=== PATIENT | female | born 1980 ===

== ENCOUNTER 2017-02-16 11:36 | Emergency (ER) | payer OTHER ==
[2017-02-16 11:48] VITALS: BP 130/85; PULSE 70; RESP 20; TEMP 98.3; O2SAT 100
--- NOTE | 2017-02-16 13:06 | C.PDOC ---
History Of Present Illness 36 y/o female presents to ED with complaints of a small thin needle sticking her hand. 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 Pt found a small plastic object with thin short bent 1 cm needle protruding from plastic. Patient is unclear if object is contaminated and reports washing hands right after incident. Patient denies numbness, fever and is unsure of last tetanus shot. Time Seen by Provider: 02/16/17 11:51 Chief Complaint (Nursing): Needle Stick History Per: Patient History/Exam Limitations: no limitations Onset/Duration Of Symptoms: Hrs Current Symptoms Are (Timing): Still Present Past Medical History Reviewed: Historical Data, Nursing Documentation, Vital Signs Vital Signs: Last Vital Signs Temp 98.3 F 02/16/17 11:44 Pulse 70 02/16/17 11:44 Resp 20 02/16/17 11:44 BP 130/85 02/16/17 11:44 Pulse Ox 100 02/16/17 14:47 Family History: States: Unknown Family Hx - Social History Hx Alcohol Use: No Hx Substance Use: No Review Of Systems Constitutional: Negative for: Fever, Chills Musculoskeletal: Positive for: Hand Pain Skin: Negative for: Rash Neurological: Negative for: Weakness, Numbness Physical Exam - Physical Exam Appears: Non-toxic, No Acute Distress Skin: Normal Color, Warm, Other (no puncture isabela noted on right palm) Head: Atraumatic, Normacephalic Oral Mucosa: Moist Extremity: Normal ROM, Capillary Refill (<2 seconds), No Deformity Pulses: Left Radial: Normal, Right Radial: Normal Neurological/Psych: Oriented x3, Normal Speech, Normal Cognition ED Course And Treatment - Laboratory Results Result Diagrams: 02/16/17 13:52 02/16/17 13:52 Urine POC: Negative O2 Sat by Pulse Oximetry: 100 (RA) Pulse Ox Interpretation: Normal Medical Decision Making Medical Decision Making: discussed with Dr Lisandra Weinberg, Infectious disease. Given unclear if contaminated needle or not, will recommend PEP with outpatient follow up with her in [facility]. Disposition Discussed With : Rafael Weinberg Doctor Will See Patient In The: Office Counseled Patient/Family Regarding: Studies Performed, Diagnosis, Need For Followup, Rx Given - Disposition Referrals: Rafael Weinberg MD [Staff Provider] - Disposition: HOME/ ROUTINE Disposition Time: 14:20 Condition: STABLE Additional Instructions: Take medications as prescribed. Follow up with Dr Weinberg on next week; call office today for an appointment. Prescriptions: Dolutegravir Sodium [Tivicay] 50 mg PO DAILY #3 tab Emtricitabine/Tenofovir (Tdf) [Truvada 200 mg-300 mg Tablet] 1 each PO DAILY #3 tablet Instructions: Needle Stick Injuries (ED) Forms: Gen Discharge Inst Albanian, General Discharge Instructions, Work Excuse Print Language: PASHTO - Clinical Impression Clinical Impression: Needle stick injury - Scribe Statement The provider has reviewed the documentation as recorded by the Scribe Alissa Goddard All medical record entries made by the Scribe were at my direction and personally dictated by me. I have reviewed the chart and agree that the record accurately reflects my personal performance of the history, physical exam, medical decision making, and the department course for this patient. I have also personally directed, reviewed, and agree with the discharge instructions and disposition.
[2017-02-16] MEDS ORDERED: Emtricitabine-Tenofovir 200 mg-300 mg Tab PO STA ×3 (13:25→13:31)
[2017-02-16 14:01] LABS: BASO # 0.1 K/uL (0.0-0.2); BASO % 0.8 % (0.0-2.0); EOS % 0.4 % (0.0-4.0); HEMOGLOBIN 12.9 g/dL (11.0-16.0); LYMPH # 2.3 K/uL (1.0-4.3); LYMPH % 28.4 % (20.0-40.0); MEAN CELL VOLUME 90.5 fL (81.0-99.0); MEAN CORPUSCULAR HEMOGLOBIN 29.5 pg (27.0-31.0); MEAN CORPUSCULAR HGB CONC 32.6 g/dL (33.0-37.0); MEAN PLATELET VOLUME 9.2 fL (7.2-11.7); MONO # 0.5 K/uL (0.0-0.8); MONO % 5.7 % (0.0-10.0); NEUT # 5.2 K/uL (1.8-7.0); NEUT % 64.7 % (50.0-75.0); RBC 4.37 Mil/uL (3.80-5.20); RED CELL DISTRIBUTION WIDTH 12.8 % (11.5-14.5)
[2017-02-16 14:02] LABS: SQUAMOUS EPITHIAL 2 /hpf (0-5); URINE BACTERIA RARE (<OCC); URINE BILIRUBIN NEGATIVE (NEGATIVE); URINE BLOOD NEGATIVE (NEGATIVE); URINE CLARITY Clear (Clear); URINE COLOR Straw (YELLOW); URINE GLUCOSE (UA) NORMAL (Normal); URINE LEUKOCYTE ESTERASE NEG Leu/uL (Negative); URINE NITRATE NEGATIVE (NEGATIVE); URINE PROTEIN NEGATIVE (NEGATIVE); URINE UROBILINOGEN NORMAL mg/dL (0.2-1.0)
[2017-02-16 14:04] LABS: HCG,QUALITATIVE URINE NEGATIVE (NEGATIVE)
[2017-02-16 14:09] LABS: ALBUMIN 4.3 g/dL (3.5-5.0)
[2017-02-16 14:11] LABS: AMYLASE 68 U/L (30-110)
[2017-02-16 14:12] LABS: ALB/GLOB RATIO 1.1 (1.0-2.1); ALT/SGPT 30 U/L (9-52); AST/SGOT 32 U/L (14-36); BLOOD UREA NITROGEN 13 mg/dL (7-17); CALCIUM 9.6 mg/dl (8.6-10.4); GFR AFRICAN-AMERICAN > 60; GFR NON-AFRICAN AMERICAN > 60
[2017-02-16 14:41] LABS: HEPATITIS B SURFACE AG NEGATIVE (NEGATIVE)
[2017-02-16 14:47] LABS: HEPATITIS B CORE AB NEGATIVE (NEGATIVE)
[2017-02-16 14:59] LABS: HEPATITIS C ANTIBODY NEGATIVE (NEGATIVE)
[2017-02-16 18:11] LABS: HEPATITIS A IGM REACTIVE (NEGATIVE)
[2017-02-17] MEDS ORDERED: Emtricitabine-Tenofovir 200 mg-300 mg Tab PO NR (13:45)
== END 2017-02-16 15:10 | disposition home or self-care (01) ==
LOC: C.ER 11:36
DX: S69.81XA Other specified injuries of right wrist, hand and finger(s), initial encounter (principal); W46.1XXA Contact with contaminated hypodermic needle, initial encounter; Y93.F9 Activity, other caregiving; Y92.238 Other place in hospital as the place of occurrence of the external cause; Y99.0 Civilian activity done for income or pay